=== PATIENT | male | born 1965 | race Caucasian/White ===

== ENCOUNTER 2022-08-06 08:00 | Outpatient (RCR) | payer OTHER | END 2022-08-11 | LOC: WCC 08:00 → EDSTATUS 08:11 | PROVIDERS: ATTEND Internal Medicine Infectious Disease | DX: S91.301A Unspecified open wound, right foot, initial encounter (principal); I87.2 Venous insufficiency (chronic) (peripheral); R60.0 Localized edema ==

== ENCOUNTER 2022-09-03 09:32 | Outpatient (RCR) | payer OTHER | END 2022-09-10 | LOC: WCC 09:32 | PROVIDERS: ATTEND Internal Medicine Infectious Disease | DX: S91.301A Unspecified open wound, right foot, initial encounter (principal); R60.0 Localized edema; I87.2 Venous insufficiency (chronic) (peripheral) ==